=== PATIENT | female | born 1945 | race Caucasian/White ===

== ENCOUNTER → 2017-09-26 | Outpatient (CLI) | payer MEDICARE ==
--- NOTE | 2017-09-26 12:02 | WWHP ---
[facility] - HISTORY AND PHYSICAL DATE OF SERVICE: 09/26/2017 CHIEF COMPLAINT: The patient is here for her routine gynecologic exam and mammogram. HPI: This is a 71-year-old, G2, P2, with an LMP of 2005. The patient is without gynecologic complaints and denies any postmenopausal bleeding. She continues to decline any treatment for her osteoporosis and is declining any further testing. PAST MEDICAL HISTORY: Hypothyroidism, rosacea, macular degeneration, and osteoporosis. MEDICATIONS: Atorvastatin 20 mg daily, levothyroxine 100 mcg daily, metronidazole facial gel b.i.d., desonide cream b.i.d., Centrum Silver vitamin 1 daily, CO Q10 200 mg daily, calcium supplement with vitamin D 600 mg b.i.d., PreserVision supplement 1 daily. ALLERGIES: No known drug allergies. PAST SURGICAL HISTORY: Laparoscopic cholecystectomy 2011 and inguinal hernia repair 1999, varicose vein stripping in 2013, colonoscopy in 2012 and 2016. 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 She has been menopausal since about 2004. SOCIAL HISTORY: She denies tobacco and drug use and has about 5 alcohol containing drinks per week. 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 FAMILY HISTORY: Father had prostate cancer and hypertension. Mother had coronary artery disease and colon cancer and a grandmother had breast cancer. REVIEW OF SYSTEMS: Weight has been stable. She denies respiratory, cardiac or GI problems. She denies maltreatment or falling. : She denies any significant problems with urinary leakage. PHYSICAL EXAM: Blood pressure 114/77, height 5 feet 5 inches, weight 177 pounds. BMI 29, temperature 97.8, pulse 74. This is a well-developed, well-nourished, white female, who is alert and oriented x3, in no acute distress. HEENT: Within normal limits. NECK: Supple without mass or thyromegaly. Chest and lungs: Clear to auscultation. HEART: Regular rate and rhythm. Breasts are without mass or discharge. Axillary exam is negative for adenopathy. Back negative for CVA tenderness. ABDOMEN: Soft, nontender, without palpable masses. Pelvic exam external genitalia reveals [id number] atrophy without lesions. Cervix and vagina reveals mild-to- moderate atrophy without lesions. There is no evidence of prolapse. The uterus is mid position nongravid size and nontender. There are no palpable adnexal masses or tenderness. Rectovaginal exam is negative for mass or tenderness and is negative for occult blood. Extremities nontender. IMPRESSION: 71-year-old menopausal female with normal gynecologic exam. PLAN: 1. Pap smear was performed. 2. Self breast examination was discussed. 3. Mammogram will be done today. 4. Osteoporosis management was discussed with the patient. She continues to decline treatment or testing for this. 5. She has received her flu shot this fall. 6. She will return in 1 year. MMODL / IJN: [id number] /
--- NOTE | 2017-09-28 10:57 | MM ---
Reason for exam: screening (asymptomatic). Last mammogram was performed 1 year ago. History: Patient is postmenopausal. Family history of breast cancer in maternal grandmother at age 56. Cyst aspiration of the left breast, February 2007. Benign stereotactic core biopsy of the left breast, November 20, 2002. Benign excisional biopsy of the left breast, October 13, 1998. Benign core biopsy of the left breast, March 09, 1998. Excisional biopsy of the left breast. Took hormonal contraceptives for 8 years beginning at age 25. Physical Findings: A clinical breast exam by your physician is recommended on an annual basis and results should be correlated with mammographic findings. MG 3D Screening Mammo W/Cad Bilateral CC and MLO view(s) were taken. Prior study comparison: September 12, 2016, bilateral MG screening mammo w CAD. September 02, 2015, bilateral MG screening mammo w CAD. The breast tissue is heterogeneously dense. This may lower the sensitivity of mammography. Previous mammotome biopsy in the left breast. No significant changes when compared with prior studies. ASSESSMENT: Negative, BI-RAD 1 RECOMMENDATION: Routine screening mammogram of both breasts in 1 year.
== END ==
LOC: WWCWWP 09:07
PROVIDERS: ATTEND Obstetrics & Gynecology
DX: Z12.31 Encounter for screening mammogram for malignant neoplasm of breast (principal)
CPT/HCPCS: 77063; G0202

== ENCOUNTER → 2018-10-02 | Outpatient (CLI) | payer MEDICARE ==
[2018-10-02 08:56] VITALS: BP 129/58; PULSE 79; TEMP 96; BMI 29.7
--- NOTE | 2018-10-02 09:35 | P.HPOB ---
History of Present Illness H&P Date: 10/02/18 Chief Complaint: The patient is here for her routine gynecologic exam and mammogram. This is a 72-year-old with an LMP of 2005. The patient is without gynecologic complaints. She had a bone density test done at [facility] on 07/17/2018. The numbers were in the osteopenia range. Review of Systems She is gained 2 pounds over the last year. She denies respiratory, cardiac and G.I. problems. She denies maltreatment or problems with falling. : she does have occasional small urinary leakage. Past Medical History Past Medical History: Eye Disorder, Hyperlipidemia, Thyroid Disorder ( Hypothyroid) Additional Past Medical History / Comment(s): macular degeneration. Osteopenia. 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 History of Any Multi-Drug Resistant Organisms: None Reported Past Surgical History: Cholecystectomy, Hernia Repair (Inguinal), Tonsillectomy Additional Past Surgical History / Comment(s): Varicose vein stripping. Last Colonoscopy 2016. Past Psychological History: No Psychological Hx Reported Smoking Status: Former smoker Past Alcohol Use History: Occasional Past Drug Use History: None Reported Additional History: She's been since 1965. She is not sexually active. 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 Medications and Allergies Home Medications Medication Instructions Recorded Confirmed Type Atorvastatin [Lipitor] 10 mg PO HS 10/02/18 10/02/18 History Desonide [DesOwen .05%] 1 applic TOPICAL 10/02/18 History Fluocinonide 0.05% [Lidex 0.05% 0.05 gm BOTH EARS PRN 10/02/18 History cream] Levothyroxine Sodium [Synthroid] 100 mcg PO DAILY 10/02/18 10/02/18 History metroNIDAZOLE 0.75% CREAM 1 applic TOPICAL BID 10/02/18 10/02/18 History [Metrocream] Allergies Allergy/AdvReac Type Severity Reaction Status Date / Time No Known Allergies Allergy Unverified 10/02/18 08:44 Exam Vital Signs Temp Pulse BP 10/02/18 08:50 96.0 F L 79 129/58 Intake and Output 10/01/18 10/02/18 10/02/18 22:59 06:59 14:59 Other: Weight 81.193 kg Height 5'5", weight 179 pounds, BMI 29.8. This is a well-developed well-nourished white female who is alert and oriented times 3 in no acute distress. HEENT: Within normal limits. NECK: Supple without mass or thyromegaly. CHEST AND LUNGS: Clear to auscultation. HEART: Regular rate and rhythm. BREASTS: Are without mass or discharge. AXILLARY EXAM: Negative for adenopathy. BACK: Negative for CVA tenderness. ABDOMEN: Soft, nontender, without palpable masses. PELVIC EXAM: Normal external genitalia with mild atrophy. Cervix and vagina appear normal with mild atrophy. There is no unusual discharge. There is no evidence of prolapse. The uterus is midposition, nongravid size and nontender. There are no palpable adnexal masses or tenderness. RECTAL EXAM: rectovaginal exam negative reveals a 1 cm anal hemorrhoid and is otherwise negative for mass or tenderness and is negative for occult blood. The hemorrhoid is nontender. EXTREMITIES: Nontender. IMPRESSION: 1. 72-year-old menopausal female with normal gynecologic exam. 2. Occasional small urinary incontinence without any significant physical findings at this time. 3. Osteopenia PLAN: 1. Pap smear was deferred since she had normal one last year. 2. Self breast awareness was discussed with the patient. 3. Screening mammogram will be done today. 4. Still process prevention was discussed. Will plan repeating bone density testing in one to 2 years. 5. She did receive a flu shot this fall. 6. She will return one year.
--- NOTE | 2018-10-03 11:59 | MM ---
Reason for exam: screening (asymptomatic). Last mammogram was performed 1 year ago. History: Patient is postmenopausal. Family history of breast cancer in maternal grandmother at age 56. Cyst aspiration of the left breast, February 2007. Benign stereotactic core biopsy of the left breast, November 20, 2002. Benign excisional biopsy of the left breast, October 13, 1998. Benign core biopsy of the left breast, March 09, 1998. Excisional biopsy of the left breast. Took hormonal contraceptives for 8 years beginning at age 25. Physical Findings: A clinical breast exam by your physician is recommended on an annual basis and results should be correlated with mammographic findings. MG 3D Screening Mammo W/Cad Bilateral CC and MLO view(s) were taken. Prior study comparison: September 26, 2017, bilateral MG 3d screening mammo w/cad. September 12, 2016, bilateral MG screening mammo w CAD. The breast tissue is heterogeneously dense. This may lower the sensitivity of mammography. Benign appearing bilateral calcifications. Left post biopsy change. No significant changes when compared with prior studies. ASSESSMENT: Benign, BI-RAD 2 RECOMMENDATION: Routine screening mammogram of both breasts in 1 year.
== END | disposition home or self-care (01) ==
LOC: WWCWWP 08:23
PROVIDERS: ATTEND Obstetrics & Gynecology
DX: Z12.31 Encounter for screening mammogram for malignant neoplasm of breast (principal)
CPT/HCPCS: 77063; 77067

== ENCOUNTER → 2019-10-22 | Outpatient (CLI) | payer MEDICARE ==
[2019-10-22 08:08] VITALS: BP 148/78; PULSE 71; RESP 18; TEMP 97.7
--- NOTE | 2019-10-22 08:47 | P.HPOB ---
History of Present Illness H&P Date: 10/22/19 Chief Complaint: The patient is here for her routine gynecologic exam and ma mmogram. This is a 74-year-old with an LMP of 2004. The patient is without gynecologic complaints. Review of Systems Weight has been stable. She denies respiratory, cardiac and G.I. problems. She denies maltreatment or problems with falling. : she denies any significant problems with urinary leakage. Past Medical History Past Medical History: Eye Disorder, Hyperlipidemia, Thyroid Disorder Additional Past Medical History / Comment(s): Hypothyroidism. macular degeneration. Osteopenia. Plantars fasciitis. 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 History of Any Multi-Drug Resistant Organisms: None Reported Past Surgical History: Cholecystectomy, Hernia Repair, Tonsillectomy Additional Past Surgical History / Comment(s): Varicose vein stripping. Last Colonoscopy 2016(next after 3yrs). Past Psychological History: No Psychological Hx Reported Smoking Status: Former smoker Past Alcohol Use History: Occasional (4/Week) Past Drug Use History: None Reported Additional History: She has been since 1965 and is not sexually active. 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 Mother Family Medical History: Cancer, Coronary Artery Disease (CAD) Additional Family Medical History / Comment(s): Colon cancer. Grandmother had breast cancer. Medications and Allergies Home Medications Medication Instructions Recorded Confirmed Type Atorvastatin [Lipitor] 10 mg PO HS 10/02/18 10/22/19 History Desonide [DesOwen .05%] 1 applic TOPICAL DAILY 10/02/18 10/22/19 History Fluocinonide 0.05% [Lidex 0.05% 0.05 gm BOTH EARS DAILY PRN 10/02/18 10/22/19 History cream] Levothyroxine Sodium [Synthroid] 100 mcg PO DAILY 10/02/18 10/22/19 History metroNIDAZOLE 0.75% CREAM 1 applic TOPICAL BID 10/02/18 10/22/19 History [Metrocream] Soolantra cream TOPICAL DAILY PRN 10/22/19 History Allergies Allergy/AdvReac Type Severity Reaction Status Date / Time adhesive tape AdvReac Rash/Hives Unverified 10/22/19 08:08 Exam Vital Signs Temp Pulse Resp BP Pulse Ox 12/04/19 08:05 97.7 F 71 18 148/78 97 Intake and Output 10/21/19 10/22/19 10/22/19 22:59 06:59 14:59 Other: Weight 81.647 kg Height 5 feet 5 inches, weight 180 pounds, BMI 30.0. This is a well-developed well-nourished white female who is alert and oriented times 3 in no acute distress. HEENT: Within normal limits. NECK: Supple without mass or thyromegaly. CHEST AND LUNGS: Clear to auscultation. HEART: Regular rate and rhythm. BREASTS: Are without mass or discharge. AXILLARY EXAM: Negative for adenopathy. BACK: Negative for CVA tenderness. ABDOMEN: Soft, nontender, without palpable masses. PELVIC EXAM: Normal external genitalia with mild atrophy. Cervix and vagina appear normal mild atrophy. There is no unusual discharge. There is no evidence of prolapse. The uterus is midposition, nongravid size and nontender. There are no palpable adnexal masses or tenderness. RECTAL EXAM: Rectovaginal exam is negative for mass or tenderness and is negative for occult blood. EXTREMITIES: Nontender. IMPRESSION: 1. 74-year-old postmenopausal female with normal gynecologic exam. 2. Osteopenia PLAN: 1. Pap smears have been discontinued. She has been adequately screened and has no history of cervical problems. 2. Self breast awareness was discussed with the patient. 3. Screening mammogram will be done today. 4. Osteoporosis prevention was discussed. I have stressed the importance of adequate calcium, vitamin D and regular exercise. Recommended amounts of calcium and vitamin D were also discussed. She will be due for another bone density test in 1-2 years. 5. She did receive a flu shot this fall. 6. I have recommended that she check her blood pressure on her own on a regular basis. She is to follow-up Dr. Kline for blood pressure elevations. 7. The patient was advised to return in 1-2 years for her well woman examination.
--- NOTE | 2019-10-23 12:03 | MM ---
Reason for exam: screening (asymptomatic). Last mammogram was performed 1 year and 1 month ago. History: Patient is postmenopausal. Family history of breast cancer in maternal grandmother at age 56. Cyst aspiration of the left breast, February 2007. Benign stereotactic core biopsy of the left breast, November 20, 2002. Benign excisional biopsy of the left breast, October 13, 1998. Benign core biopsy of the left breast, March 09, 1998. Excisional biopsy of the left breast. Took hormonal contraceptives for 8 years beginning at age 25. Physical Findings: A clinical breast exam by your physician is recommended on an annual basis and results should be correlated with mammographic findings. MG 3D Screening Mammo W/Cad Bilateral CC and MLO view(s) were taken. Prior study comparison: October 02, 2018, bilateral MG 3d screening mammo w/cad. September 26, 2017, bilateral MG 3d screening mammo w/cad. There are scattered fibroglandular densities. Benign appearing bilateral calcifications. No suspicious abnormality. Left biopsy marker noted. No significant changes when compared with prior studies. ASSESSMENT: Benign, BI-RAD 2 RECOMMENDATION: Routine screening mammogram of both breasts in 1 year.
== END | disposition home or self-care (01) ==
LOC: WWCWWP 07:47
PROVIDERS: ATTEND Obstetrics & Gynecology
DX: Z12.31 Encounter for screening mammogram for malignant neoplasm of breast (principal)
CPT/HCPCS: 77063; 77067

== ENCOUNTER → 2021-06-08 | Outpatient (CLI) | payer MEDICARE ==
[2021-06-08 09:40] VITALS: BP 132/75; PULSE 74; RESP 18; TEMP 98
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
--- NOTE | 2021-06-09 08:12 | MM ---
Reason for exam: screening (asymptomatic). Last mammogram was performed 1 year and 8 months ago. History: Patient is postmenopausal. Family history of breast cancer in maternal grandmother at age 56. Cyst aspiration of the left breast, February 2007. Benign stereotactic core biopsy of the left breast, November 20, 2002. Benign excisional biopsy of the left breast, October 13, 1998. Benign core biopsy of the left breast, March 09, 1998. Excisional biopsy of the left breast. Took hormonal contraceptives for 8 years beginning at age 25. Physical Findings: A clinical breast exam by your physician is recommended on an annual basis and results should be correlated with mammographic findings. MG 3D Screening Mammo W/Cad Bilateral CC and MLO view(s) were taken. Prior study comparison: October 22, 2019, bilateral MG 3d screening mammo w/cad. October 02, 2018, bilateral MG 3d screening mammo w/cad. There are scattered fibroglandular densities. Left biopsy clip. ASSESSMENT: Benign, BI-RAD 2 RECOMMENDATION: Routine screening mammogram of both breasts in 1 year.
== END ==
LOC: WWCWWP 09:16
PROVIDERS: ATTEND Obstetrics & Gynecology
DX: Z12.31 Encounter for screening mammogram for malignant neoplasm of breast (principal); Z01.419 Encounter for gynecological examination (general) (routine) without abnormal findings; E78.5 Hyperlipidemia, unspecified; E03.9 Hypothyroidism, unspecified; Z80.3 Family history of malignant neoplasm of breast; Z78.0 Asymptomatic menopausal state; Z87.891 Personal history of nicotine dependence; Z79.899 Other long term (current) drug therapy; Z91.048 Other nonmedicinal substance allergy status; Z87.39 Personal history of other diseases of the musculoskeletal system and connective tissue
CPT/HCPCS: 77063; 77067

== ENCOUNTER → 2022-06-28 | Outpatient (CLI) | payer MEDICARE ==
[2022-06-28 09:21] VITALS: BP 122/70; PULSE 67; RESP 17; TEMP 98.1
--- NOTE | 2022-06-28 10:28 | P.HPOB ---
History of Present Illness H&P Date: 06/28/22 Chief Complaint: The patient is here for her routine gynecologic exam and ma mmogram. This is a 76-year-old with an LMP of 2004. The patient is without gynecologic complaints and denies any postmenopausal bleeding. Review of Systems The patient has lost 8 pounds over the last year. She denies respiratory, cardiac, or G.I. problems. Past Medical History Past Medical History: Eye Disorder, Hyperlipidemia, Skin Disorder, Thyroid Disorder Additional Past Medical History / Comment(s): Hypothyroidism. macular degeneration. Osteopenia. Rosacea. Plantars fasciitis. 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 History of Any Multi-Drug Resistant Organisms: None Reported Past Surgical History: Cholecystectomy, Hernia Repair, Tonsillectomy Additional Past Surgical History / Comment(s): Varicose vein stripping. Last Colonoscopy 2016(next after 3yrs). Past Psychological History: No Psychological Hx Reported Smoking Status: Former smoker Past Alcohol Use History: Occasional (2 or 3 per week) Additional Past Alcohol Use History / Comment(s): Quit smoking in college. Past Drug Use History: None Reported Additional History: She has been since 1965 and is not sexually active. Her has multiple medical problems and recently had a closed head injury in November 2021. 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 Mother Family Medical History: Cancer, Coronary Artery Disease (CAD) Additional Family Medical History / Comment(s): Colon cancer. Grandmother had breast cancer. Medications and Allergies Home Medications Medication Instructions Recorded Confirmed Type Atorvastatin [Lipitor] 10 mg PO HS 10/02/18 06/28/22 History Desonide [DesOwen .05%] 1 applic TOPICAL DAILY 10/02/18 06/28/22 History Fluocinonide 0.05% [Lidex 0.05% 0.05 gm BOTH EARS DAILY PRN 10/02/18 06/28/22 History cream] Levothyroxine Sodium [Synthroid] 100 mcg PO DAILY 10/02/18 06/28/22 History metroNIDAZOLE 0.75% CREAM 1 applic TOPICAL BID 10/02/18 06/28/22 History [Metrocream 0.75%] Soolantra See Protocol TOPICAL DAILY PRN 10/22/19 06/28/22 History Rosuvastatin [Crestor] 10 mg PO DAILY 06/08/21 06/28/22 History Allergies Allergy/AdvReac Type Severity Reaction Status Date / Time adhesive tape AdvReac Rash/Hives Unverified 06/28/22 09:15 Exam Vital Signs Temp Pulse Resp BP Pulse Ox 06/28/22 09:19 98.1 F 67 17 122/70 99 Intake and Output 06/27/22 06/28/22 06/28/22 22:59 06:59 14:59 Other: Weight 78.925 kg Height 5 feet 5 inches, weight 174 pounds, BMI 29.0. This is a well-developed well-nourished white female who is alert and oriented times 3 in no acute distress. HEENT: Within normal limits. NECK: Supple without mass or thyromegaly. CHEST AND LUNGS: Clear to auscultation. HEART: Regular rate and rhythm. BREASTS: Are without mass or discharge. AXILLARY EXAM: Negative for adenopathy. BACK: Negative for CVA tenderness. ABDOMEN: Soft, nontender, without palpable masses. PELVIC EXAM: Normal external genitalia with mild to moderate atrophy. Cervix and vagina appear normal with mild atrophy. There is no unusual discharge. There is no evidence of prolapse. The uterus is midposition, nongravid size and nontender. There are no palpable adnexal masses or tenderness. RECTAL EXAM: Rectovaginal exam is negative for mass or tenderness and is negative for occult blood. EXTREMITIES: Nontender. IMPRESSION: 1. 76-year-old menopausal female with normal gynecologic exam. 2. History of osteopenia. PLAN: 1. Pap smears have been discontinued. 2. Self breast awareness was discussed with the patient. We have also discussed symptoms associated with inflammatory breast cancer. 3. Screening mammogram will be done today. 4. Osteoporosis prevention was discussed. I have stressed the importance of adequate calcium, vitamin D and regular exercise. Recommended amounts of calcium and vitamin D were also discussed. We will plan on repeating bone density testing in 1 year. Her last one was done at [facility] on 05/04/2021. 5. She has completed her Covid vaccination series and did receive a booster. 6. She is due for a colonoscopy and she is currently in the process of having this arranged through her PCP. 7. The patient was advised to return in 1-2 years for her well woman examination.
--- NOTE | 2022-06-29 09:23 | MM ---
Reason for Exam: Screening (asymptomatic). Last mammogram was performed 1 year(s) and 1 month(s) ago. Patient History: Menarche at age 10. First Full-Term at age 22. Postmenopausal. Hormonal Contraceptives for 8 years from age 25 until age 33. 02/2007, Cyst Aspiration on the Left side. Excisional Biopsy on the Left side. 10/13/1998, Benign Excisional Biopsy on the left side. 11/20/2002, Benign Stereotactic Core Biopsy on the left side. 03/09/1998, Benign Core Biopsy on the left side. Maternal grandmother had breast cancer, age 56. Risk Values: Queta 5 year model risk: 2.6%. NCI Lifetime model risk: 4.9%. Prior Study Comparison: 10/02/2018 Bilateral Screening Mammogram, LOC[facility]IN [facility]. 10/22/2019 Bilateral Screening Mammogram, [facility]. 06/08/2021 Bilateral Screening Mammogram, [facility]. Tissue Density: There are scattered fibroglandular densities. Findings: Analyzed By CAD. Stable benign-appearing ossifications. There is no suspicious group of microcalcifications or new suspicious mass in either breast. Overall Assessment: Negative, BI-RAD 1 Management: Screening Mammogram of both breasts in 1 year. A clinical breast exam by your physician is recommended on an annual basis and results should be correlated with mammographic findings. Electronically signed and approved by: Sarabjit Armijo DO
== END ==
LOC: WWCWWP 09:05
PROVIDERS: ATTEND Obstetrics & Gynecology
DX: Z12.31 Encounter for screening mammogram for malignant neoplasm of breast (principal); E78.5 Hyperlipidemia, unspecified; E03.9 Hypothyroidism, unspecified; Z87.891 Personal history of nicotine dependence; Z79.890 Hormone replacement therapy; Z87.39 Personal history of other diseases of the musculoskeletal system and connective tissue; Z91.048 Other nonmedicinal substance allergy status
CPT/HCPCS: 77063; 77067

== ENCOUNTER → 2023-08-08 | Outpatient (CLI) | payer MEDICARE ==
--- NOTE | 2023-08-08 11:25 | P.HPOB ---
History of Present Illness H&P Date: 08/08/23 Chief Complaint: The patient is here for her routine gynecologic exam and ma mmogram. This is a 77-year-old with an LMP of 2004. The patient is without gynecologic complaints. Review of Systems The patient has gained 3 pounds over the last year. She denies respiratory, cardiac, or G.I. problems. Past Medical History Past Medical History: Eye Disorder, Hyperlipidemia, Skin Disorder, Thyroid Disorder Additional Past Medical History / Comment(s): Hypothyroidism. macular degeneration. Osteopenia. Rosacea. Plantars fasciitis. 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 History of Any Multi-Drug Resistant Organisms: None Reported Past Surgical History: Cholecystectomy, Hernia Repair, Tonsillectomy Additional Past Surgical History / Comment(s): Varicose vein stripping. Last Colonoscopy 2021(next after 5yrs). Past Psychological History: No Psychological Hx Reported (PHQ-2 questionaire was given and she scores 0. This is a negative screen for depression.) Smoking Status: Former smoker Past Alcohol Use History: Occasional (4-5 drinks per month.) Additional Past Alcohol Use History / Comment(s): Quit smoking in college. Past Drug Use History: None Reported Additional History: She she is a since 2022. 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 Mother Family Medical History: Cancer, Coronary Artery Disease (CAD) Additional Family Medical History / Comment(s): Colon cancer. Grandmother had breast cancer. Medications and Allergies Home Medications Medication Instructions Recorded Confirmed Type Atorvastatin [Lipitor] 10 mg PO HS 10/02/18 08/08/23 History Desonide [DesOwen .05%] 1 applic TOPICAL DAILY 10/02/18 08/08/23 History Fluocinonide 0.05% [Lidex 0.05% 0.05 gm BOTH EARS DAILY PRN 10/02/18 08/08/23 History cream] Levothyroxine Sodium [Synthroid] 100 mcg PO DAILY 10/02/18 08/08/23 History metroNIDAZOLE 0.75% CREAM 1 applic TOPICAL BID 10/02/18 08/08/23 History [Metrocream 0.75%] Soolantra See Protocol TOPICAL DAILY PRN 10/22/19 08/08/23 History Rosuvastatin [Crestor] 10 mg PO DAILY 06/08/21 08/08/23 History Allergies Allergy/AdvReac Type Severity Reaction Status Date / Time adhesive tape AdvReac Rash/Hives Unverified 08/08/23 10:33 Exam Vital Signs Temp Pulse Resp BP Pulse Ox 08/08/23 10:33 98.4 F 74 16 128/84 97 Intake and Output 08/07/23 08/08/23 08/08/23 22:59 06:59 14:59 Other: Weight 80.286 kg Height 5 feet 5 inches, weight 177 pounds, BMI 29.5. This is a well-developed well-nourished white female who is alert and oriented times 3 in no acute distress. HEENT: Within normal limits. NECK: Supple without mass or thyromegaly. CHEST AND LUNGS: Clear to auscultation. HEART: Regular rate and rhythm. BREASTS: Are without mass or discharge. AXILLARY EXAM: Negative for adenopathy. BACK: Negative for CVA tenderness. ABDOMEN: Soft, nontender, without palpable masses. PELVIC EXAM: Normal external genitalia with mild atrophy. Cervix and vagina appear normal with mild atrophy. There is no unusual discharge. There is no evidence of prolapse. The uterus is midposition, nongravid size and nontender. There are no palpable adnexal masses or tenderness. RECTAL EXAM: There is a 1.5 cm hemorrhoid right at the opening of the anus. This is nontender and soft. Rectovaginal exam is negative for mass or tenderness and is negative for occult blood. EXTREMITIES: Nontender. IMPRESSION: 1. 77-year-old menopausal female with normal gynecologic exam. 2. History of osteopenia. PLAN: 1. Pap smears have been discontinued. 2. Self breast awareness was discussed with the patient. We have also discussed symptoms associated with inflammatory breast cancer. 3. Screening mammogram will be done today. 4. Osteoporosis prevention was discussed. I have stressed the importance of adequate calcium, vitamin D and regular exercise. Recommended amounts of calcium and vitamin D were also discussed. She states she had a bone density test done on 08/07/[address] [facility] through her PCP. She states she asked that the results be sent to me. 5. PHQ-2 questionaire was given and she scores 0. This is a negative screen for depression. 6. The patient was advised to return in 1-2 years for her well woman examination.
[2023-08-08 13:15] VITALS: BP 128/84; PULSE 74; RESP 16; TEMP 98.4
--- NOTE | 2023-08-09 10:12 | MM ---
Reason for Exam: Screening (asymptomatic). Last mammogram was performed 1 year(s) and 1 month(s) ago. Patient History: Menarche at age 10. First Full-Term at age 22. Postmenopausal. Hormonal Contraceptives for 8 years from age 25 until age 33. 02/2007, Cyst Aspiration on the Left side. Excisional Biopsy on the Left side. 10/13/1998, Benign Excisional Biopsy on the left side. 11/20/2002, Benign Stereotactic Core Biopsy on the left side. 03/09/1998, Benign Core Biopsy on the left side. Maternal grandmother had breast cancer, age 56. Risk Values: Queta 5 year model risk: 2.5%. NCI Lifetime model risk: 4.5%. Prior Study Comparison: 10/22/2019 Bilateral Screening Mammogram, [facility]. 06/08/2021 Bilateral Screening Mammogram, [facility]. 06/28/2022 Bilateral MG 3D screening mammo w/cad, [facility]. Tissue Density: The breast tissue is heterogeneously dense. This may lower the sensitivity of mammography. Findings: Analyzed By CAD. Benign calcifications bilaterally. Chronic nodularity in the outer margin of the right breast. Grouped calcifications adjacent surgical clips stable. There is additional area of chronic nodularity in the outer margin of the left breast. There is a new focal area of nodularity in the central outer aspect of the left breast. Irregular density seen in the mid to lateral margin of the right breast. Overall Assessment: Incomplete: need additional imaging evaluation, BI-RAD 0 Management: Diagnostic Mammogram of both breasts. . Patient should continue monthly self-breast exams. A clinical breast exam by your physician is recommended on an annual basis. This exam should not preclude additional follow-up of suspicious palpable abnormalities. Note on Queta scores and lifetime risk: 1. A Queta score greater than 3% is considered moderate risk. If this is the case, consider specialist referral to assess eligibility for a risk reducing agent. 2. If overall lifetime risk for the development of breast cancer is 20% or higher, the patient may qualify for future screening with alternating mammogram and breast MRI. Electronically signed and approved by: Damaso Kirby M.D. Radiologis
== END ==
LOC: WWCWWP 10:27
PROVIDERS: ATTEND Obstetrics & Gynecology
DX: Z01.419 Encounter for gynecological examination (general) (routine) without abnormal findings (principal); E03.9 Hypothyroidism, unspecified; E78.5 Hyperlipidemia, unspecified; M85.80 Other specified disorders of bone density and structure, unspecified site; Z79.890 Hormone replacement therapy; Z12.31 Encounter for screening mammogram for malignant neoplasm of breast; Z80.3 Family history of malignant neoplasm of breast; Z87.891 Personal history of nicotine dependence; Z91.048 Other nonmedicinal substance allergy status
CPT/HCPCS: 77063; 77067

== ENCOUNTER → 2024-02-14 | Outpatient (CLI) | payer MEDICARE ==
--- NOTE | 2024-02-14 09:49 | MM ---
Reason for Exam: Additional evaluation requested from abnormal screening. Last screening mammogram was performed 6 month(s) ago. Patient History: Menarche at age 10. First Full-Term at age 22. Postmenopausal. Hormonal Contraceptives for 8 years from age 25 until age 33. 02/2007, Cyst Aspiration on the Left side. Excisional Biopsy on the Left side. 10/13/1998, Benign Excisional Biopsy on the left side. 11/20/2002, Benign Stereotactic Core Biopsy on the left side. 03/09/1998, Benign Core Biopsy on the left side. Maternal grandmother had breast cancer, age 56. Risk Values: Queta 5 year model risk: 2.5%. NCI Lifetime model risk: 4.1%. Tissue Density: There are scattered areas of fibroglandular density. Findings: Analyzed By CAD. The pattern is symmetrical. There is a rounded calcification within the left breast. Multiple small punctate calcifications are adjacent to a surgical clip within the left breast. No significant interval changes are evident. Few scattered punctate calcifications within the right. There is some chronic nodularity of the left breast. No suspicious groups of microcalcifications, spiculated or lobular masses, architectural distortion or other secondary signs of malignancy are mammographically apparent. Overall Assessment: Benign, BI-RAD 2 Management: Screening Mammogram of both breasts in 6 months. A negative mammogram report should not preclude additional follow up of suspicious palpable abnormalities. Patient should continue monthly self breast exam. A clinical breast exam by your physician is recommended on an annual basis and results should be correlated with mammographic findings. Electronically signed and approved by: Galileo Bueno D.O. Radiologis
== END | disposition home or self-care (01) ==
LOC: RADMAMWWP 09:06
PROVIDERS: ATTEND Obstetrics & Gynecology
DX: R92.323 Mammographic fibroglandular density, bilateral breasts (principal); Z78.0 Asymptomatic menopausal state; Z80.3 Family history of malignant neoplasm of breast
CPT/HCPCS: 77066; G0279; 77062

== ENCOUNTER → 2024-08-20 | Outpatient (CLI) | payer MEDICARE ==
--- NOTE | 2024-08-21 14:23 | MM ---
Reason for Exam: Screening (asymptomatic). Last screening mammogram was performed 7 month(s) ago. Patient History: Menarche at age 10. First Full-Term at age 22. Postmenopausal. Hormonal Contraceptives for 8 years from age 25 until age 33. 02/2007, Cyst Aspiration on the Left side. Excisional Biopsy on the Left side. 10/13/1998, Benign Excisional Biopsy on the left side. 11/20/2002, Benign Stereotactic Core Biopsy on the left side. 03/09/1998, Benign Core Biopsy on the left side. Maternal grandmother had breast cancer, age 56. Risk Values: Queta 5 year model risk: 2.5%. NCI Lifetime model risk: 4.1%. Prior Study Comparison: 08/08/2023 Bilateral MG 3D screening mammo w/cad, [facility]. 08/15/2023 Bilateral MG 3D work up w/cad [facility], [facility]. 02/14/2024 Bilateral MG 3D diag mammo w/cad [facility], [facility]. Tissue Density: There are scattered areas of fibroglandular density. Findings: Analyzed By CAD. Right breast: There is no suspicious group of microcalcifications or new suspicious mass. Left breast: There is no suspicious group of microcalcifications or new suspicious mass. Overall Assessment: Negative, BI-RAD 1 Management: Screening Mammogram of both breasts in [address] [facility] will attempt to contact patient to return for supplemental views and ultrasound if indicated. Patient should continue monthly self-breast exams. A clinical breast exam by your physician is recommended on an annual basis. This exam should not preclude additional follow-up of suspicious palpable abnormalities. Note on Queta scores and lifetime risk: 1. A Queta score greater than 3% is considered moderate risk. If this is the case, consider specialist referral to assess eligibility for a risk reducing agent. 2. If overall lifetime risk for the development of breast cancer is 20% or higher, the patient may qualify for future screening with alternating mammogram and breast MRI. [facility], , 08/21/2024 2:21 PM. Electronically signed and approved by: Sarabjit Armijo DO
== END | disposition home or self-care (01) ==
LOC: WWCWWP 10:26
PROVIDERS: ATTEND Obstetrics & Gynecology
DX: Z12.31 Encounter for screening mammogram for malignant neoplasm of breast (principal); R92.323 Mammographic fibroglandular density, bilateral breasts; Z80.3 Family history of malignant neoplasm of breast; Z78.0 Asymptomatic menopausal state
CPT/HCPCS: 77063; 77067